=== PATIENT | female | born 2000 | race Caucasian/White ===

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

== ENCOUNTER 2021-06-15 11:12 | Outpatient (CLI) | payer OTHER, SELFPAY ==
--- NOTE | 2021-06-15 11:15 | DI.RAD_ITS ---
Exam(s) XR KNEE RT 3V AP,LAT,CARRIE EXAM: XR KNEE RT 3V AP,LAT,CARRIE CLINICAL HISTORY: Pain. S/P Snowboarding Accident 06/13/21. TECHNIQUE: COMPARISON: CR XR KNEE LT 3V AP,LAT,CARRIE from 06/15/2021 FINDINGS: Three views were obtained. There does not appear to be a significant knee joint effusion on the late ral film. There is no evidence of acute fracture or dislocation. IMPRESSION: RADIATION DOSE DELIVERED: Total DLP
--- NOTE | 2021-06-15 11:15 | DI.RAD_ITS ---
Exam(s) XR SHOULDER LT COMPLETE 2+V EXAM: XR SHOULDER LT COMPLETE 2+V CLINICAL HISTORY: Pain. S/P Snowboarding Accident 06/13/21. Dec ROM. TECHNIQUE: COMPARISON: No exams were available for comparison FINDINGS: Five views were obtained. There appears to be mild elevation of the clavicle with respect to the acr omion raising the possibility of a low-grade acromioclavicular separation. There is no evidence of f racture or glenohumeral dislocation. IMPRESSION: RADIATION DOSE DELIVERED: Total DLP
--- NOTE | 2021-06-15 11:15 | DI.RAD_ITS ---
Exam(s) XR KNEE LT 3V AP,LAT,CARRIE EXAM: XR KNEE LT 3V AP,LAT,CARRIE CLINICAL HISTORY: Pain. S/P Snowboarding Accident 06/13/21. TECHNIQUE: COMPARISON: No exams were available for comparison FINDINGS: Three views were obtained. No gross knee joint effusion seen on the lateral film. No evidence of fr acture or dislocation. IMPRESSION: RADIATION DOSE DELIVERED: Total DLP
== END 2021-06-15 11:32 ==
PROVIDERS: PCP Nurse Practitioner Family; Visit Provider Nurse Practitioner Family
DX: M25.562 Pain in left knee (principal); V00.318A Other snowboard accident, initial encounter; M25.512 Pain in left shoulder; M25.561 Pain in right knee
CPT/HCPCS: 73562; 73030